=== PATIENT | male | born 1945 | race Caucasian/White ===

== ENCOUNTER → 2017-08-08 | Outpatient (CLI) | payer MEDICARE ==
[~2017-08-08] MED LIST: ACE500 PO; ASP325 PO; ASPI-715 PO; CELE-1 PO; CHOL10005 PO; ENOX40DI13 INJ; IBUP1TAB90 PO; IRO150 PO; MULT-1335 PO; MVM PO; NAPR220C12 PO; OMEP-218 PO; OXYC1TAB54 PO; PIRO-1 PO; TAMS0.4C70 PO; WAR5 PO
[2017-08-08 09:43] LABS: PLATELET COUNT, AUTOMATED 197 K/uL (150-450)
[2017-08-08 09:57] LABS: LDL CHOLESTEROL 88 mg/dl
== END ==
LOC: LAB 09:19
PROVIDERS: ATTEND Internal Medicine
DX: Z12.5 Encounter for screening for malignant neoplasm of prostate (principal); R35.1 Nocturia; R79.9 Abnormal finding of blood chemistry, unspecified
CPT/HCPCS: 36415; 81001; 84443; 85025; G0103; 82040; 82247; 82310; 82374; 82435; 82465; 82565; 82947; 83718; 84075; 84132; 84153; 84155; 84295; 84450; 84460; 84478; 84520

== ENCOUNTER → 2018-05-04 | Outpatient (CLI) | payer MEDICARE, OTHER ==
[~2018-05-04] MED LIST changes: +PNEU0.5D3 IM; +[UNRECOGNIZED DRUG - CODE] PO
[2018-05-04 10:06] LABS: PLATELET COUNT, AUTOMATED 189 K/uL (150-450)
--- NOTE | 2018-05-04 12:18 | EKG ---
[place] [facility] [place]IENT NAME: LAURA BARAJAS : [id number] MR: [id number] V: [id number] EXAM DATE: ORDERING PHYSICIAN: MAEVE DELGADO TECHNOLOGIST: DANIEL Test Reason : SX CLEARENCE Blood Pressure : / mmHG Vent. Rate : 074 BPM Atrial Rate : 074 BPM P-R Int : 154 ms QRS Dur : 098 ms QT Int : 416 ms P-R-T Axes : 035 -41 029 degrees QTc Int : 461 ms Normal sinus rhythm Left axis deviation Abnormal ECG No previous ECGs available Confirmed by MAEVE DELGADO ([id number]) on 05/04/2018 4:44:50 PM Referred By: MARIE Confirmed By:MAEVE DELGADO
== END ==
LOC: LAB 09:28
PROVIDERS: ATTEND Internal Medicine
DX: Z01.818 Encounter for other preprocedural examination (principal); M19.90 Unspecified osteoarthritis, unspecified site; N40.0 Benign prostatic hyperplasia without lower urinary tract symptoms
CPT/HCPCS: 36415; 81001; 82040; 82247; 82310; 82374; 82435; 82565; 82947; 84075; 84132; 84155; 84295; 84450; 84460; 84520; 85025

== ENCOUNTER 2018-05-26 00:35 | Inpatient (IN) | payer MEDICARE ==
[2018-05-25 13:27] LABS: INR 0.96
--- NOTE | 2018-05-25 21:10 | HISTORY AND PHYSICAL ---
DATE OF ADMISSION: May 26, 2018 IDENTIFICATION/CHIEF COMPLAINT Afua is a 72-year-old gentleman with the chief complaint of right knee pain. HISTORY OF PRESENT ILLNESS Patient has a long-standing history of knee arthritis, progressively painful and debilitating, refractory to conservative care. Surgery is indicated to relieve symptoms after failure of nonoperative measures. PAST MEDICAL HISTORY Notable for an enlarged prostate. He is otherwise in excellent health. ALLERGIES He is allergic to PENICILLIN which causes hives. CURRENT MEDICATIONS 1. Aleve two tablets p.o. b.i.d. 2. Vitamin D. 3. Multivitamins. 4. Tamsulosin one tablet p.o. q. day. PAST SURGICAL HISTORY 1. Knee replacement on the contralateral side. 2. Cholecystectomy. SOCIAL HISTORY Negative for tobacco and alcohol use. FAMILY HISTORY Noncontributory. REVIEW OF SYSTEMS Negative. PHYSICAL EXAMINATION GENERAL: He is a well-developed, well-nourished male who appears stated age. HEENT: Normocephalic, atraumatic. NECK: Supple. LUNGS: Clear. HEART: Regular. ABDOMEN: Soft. ORTHOPEDIC: Right knee has crepitus. Gross stability is good. Extensor function is intact. Effusion is present. He is stiff at end range. IMAGING Radiographs demonstrate end-stage knee arthritis. ASSESSMENT Right knee end-stage degenerative joint disease, progressively painful and debilitating, refractory to conservative care. PLAN Per patient request, we are going to proceed with total knee arthroplasty. Nature of this procedure as well as the risks, benefits, the anticipated rehabilitative course reviewed. The risks of the procedure include, but are not limited to , major medical or anesthetic complication, infection, neurovascular injury, blood transfusion, stiffness, scarring, fracture, tendon rupture, instability, implant loosening, migration, or failure, persistent or recurrent pain, need for additional surgery, and other unforeseen. He understands and wishes to proceed. Signed permit is placed in the chart. No guarantees are given or implied. GREGORY
[2018-05-26] VITALS (15 sets, daily range): BP systolic 79–142; BP diastolic 58–87
[~2018-05-26] VITALS: Ht 177.8 cm; Wt 93.0 kg
[~2018-05-26 00:35] MED LIST changes: +ACET500T68 PO
[2018-05-26] MEDS ORDERED: LIDOCAINE MPF 1% 5 ML VIAL ONE (08:11)
[2018-05-26] MEDS ORDERED: PROPOFOL EMUL(*) 10MG/ML 20 ML 20 ML ONE (08:11)
[2018-05-26] MEDS ORDERED: METOCLOPRAMIDE 10 MG/2 ML SDV ONE ×2 (08:11→11:18)
[2018-05-26] MEDS ORDERED: ONDANSETRON 4 MG/2 ML VIAL ONE (08:11)
[2018-05-26] MEDS ORDERED: DEXAMETHASONE SOD 4 MG/ML VIAL ONE ×2 (08:16→11:18)
[2018-05-26] MEDS ORDERED: fentaNYL CITR 100 MCG/2 ML AMP ONE ×2 (08:16→11:18)
[2018-05-26] MEDS ORDERED: MIDAZOLAM 2 MG/2 ML VIAL IVP PRN (09:15)
[2018-05-26] MEDS ORDERED: LIDOCAINE/SOD BICARB 8.4% SYR ID ONE (09:15)
[2018-05-26] MEDS ORDERED: NORMOSOL R SOLN(*) 1000 ML BAG 1,000 ML IV PRN ×2 (09:15→13:40)
[2018-05-26] MEDS ORDERED: cloNIDine EPIDUR INJ 100MCG/ML 40 MCG, ROPIVACAINE 0.5% 20 ML VIAL 25 ML, EPINEPHrine H... INJ ONE (09:15)
[2018-05-26] MEDS ORDERED: ACETAMINOPHEN 500 MG TAB PO ONE (09:15)
[2018-05-26] MEDS ORDERED: CELECOXIB 200 MG CAP PO ONE (09:15)
[2018-05-26] MEDS ORDERED: TRANEXAMIC AC 1000 MG/10ML SDV 1,000 MG in DEXTROSE 5% 50 ML BAG 50 ML IV ONE (09:15)
[2018-05-26] MEDS ORDERED: PREGABALIN 75 MG CAPSULE PO ONE (09:15)
[2018-05-26] MEDS ORDERED: CLINDAMYCIN 900 MG/D5W 50 ML 50 ML IVPB ONE (09:15)
[2018-05-26] MEDS ORDERED: VANCOMYCIN 1 GM VIAL ONE (10:50)
[2018-05-26] MEDS ORDERED: PROPOFOL 10 MG/1 ML VIAL ONE (11:18)
[2018-05-26] MEDS ORDERED: TRANEXAMIC AC 1000 MG/10ML SDV ONE (11:18)
[2018-05-26] MEDS ORDERED: PHENYLEPHRINE/NS/PF 0.4MG/10ML ONE (11:55)
[2018-05-26] MEDS ORDERED: NS 0.9% IRRIGATION 1000ML PLCT IR ONE (12:05)
[2018-05-26] MEDS ORDERED: PHENYLEPHRINE 10 MG/1 ML VIAL ONE (12:05)
[2018-05-26] MEDS ORDERED: LACTATED RINGER 3000 ML BAG IR ONE (12:05)
[2018-05-26] MEDS ORDERED: WATER STERILE FOR IRRIG 1000ML IR ONE (12:06)
[2018-05-26] MEDS ORDERED: NS(*) 0.9% 250 ML BAG 250 ML ONE (12:08)
[2018-05-26] MEDS ORDERED: diphenhydrAMINE 50 MG/ML VIAL IVP PRN (13:40)
[2018-05-26] MEDS ORDERED: PROMETHAZINE 25 MG/ML 1 ML AMP IVP PRN (13:40)
[2018-05-26] MEDS ORDERED: ZOLPIDEM TARTRATE 5 MG TAB PO PRN (13:40)
[2018-05-26] MEDS ORDERED: diphenhydrAMINE 25 MG CAP PO PRN (13:40)
[2018-05-26] MEDS ORDERED: BENZOCAINE/MENTHOL 1 EACH LOZG PO PRN (13:40)
[2018-05-26] MEDS ORDERED: FLUSH 10 ML SYR IVP PRN (13:40)
[2018-05-26] MEDS ORDERED: BISACODYL 10 MG SUPP PR PRN (13:40)
[2018-05-26] MEDS ORDERED: ACETAMINOPHEN 325 MG TAB PO PRN (13:40)
[2018-05-26] MEDS ORDERED: MAGNESIUM HYDROXIDE* 30ML UDCP PO PRN (13:40)
--- NOTE | 2018-05-26 15:43 | RADIOLOGY IMAGING REPORT ---
FACILITY: [facility] PATIENT NAME: Afua Eagle : 1945 MR: [id number] V: [id number] EXAM DATE: ORDERING PHYSICIAN: ELLA EDMONDSON TECHNOLOGIST: Location: [facility] - [place] Patient: Afua Eagle : 1945 Visit/Account:[id number] Date of Sevice: 05/26/2018 Exam type: KNEE LIMITED RIGHT History: S/P TOTAL RIGHT KNEE ARTHROPLASTY, CHECK PLACEMENT Comparison: None. Findings: Two views of the right knee demonstrate a right knee arthroplasty in good anatomic limits. Soft tiss ue gas and skin randall project over the anterior aspect of the right knee IMPRESSION: 1. Right knee arthroplasty appears in good anatomic alignment Report Dictated By: Sol Fisher MD at 05/26/2018 3:38 PM Report E-Signed By: Sol Fisher MD at 05/26/2018 3:38 PM WSN:[id number]
[2018-05-26] MEDS: APAP/HYDROCODONE 325/7.5 TAB PO PRN ×2 (16:07→21:51)
[2018-05-26] MEDS: CELECOXIB 200 MG CAP PO SCH (16:32)
--- NOTE | 2018-05-26 16:36 | OPERATIVE REPORT 1 ---
EVENT DATE: May 26, 2018 SURGEON: Manish Rodriguez MD ANESTHESIOLOGIST: Tolu Blandon MD ANESTHESIA: General with spinal MANAGER TELECOM: JONATHON Jackson PREOPERATIVE DIAGNOSIS Right knee degenerative joint disease. POSTOPERATIVE DIAGNOSIS Right knee degenerative joint disease. PROCEDURE PERFORMED Right total knee arthroplasty. ESTIMATED BLOOD LOSS Minimal. DRAINS None. SPECIMENS None. COMPLICATIONS None apparent. TOURNIQUET TIME 51 minutes. IMPLANTS USED [employer] Triathlon knee system with 6 right PS femur, 6 standard tibial baseplate, 36 mm universal, symmetric, all-polyethylene patellar button, and an 11 mm PS tibial tray liner. Polyethylene is X3. INDICATION Afua has intractable pain and disability related to endstage right knee arthroplasty. Surgery is indicated to relieve symptoms after failure of nonoperative measures. DESCRIPTION OF PROCEDURE Patient was taken to the operating room and placed supine on the operating table. Spinal block is administered by the anesthesiologist. General anesthesia is induced. Standard antibiotics and TXA are administered IV. Right lower extremity is prepped and draped in the usual sterile fashion for knee arthroplasty. Limb is exsanguinated with an Esmarch bandage. Tourniquet is inflated to 250 mmHg. Midline longitudinal incision made, carried down through the skin and subcutaneous tissue to the deep fascia. Full-thickness flaps are developed far enough medially to allow medial parapatellar arthrotomy to be performed. Patella is everted. Knee is brought into flexed position. Fat pad, anterior horns of the menisci, and the cruciate ligaments are debrided. A subperiosteal capsule release is performed circumferentially 1 cm above the upper tibial plateau to start to balance the knee. A step drill is used to enter the distal femur. A 10-inch long alignment guide is used to engage the isthmus, cut set for 5 degrees of valgus relative to the anatomic axis. The 10 mm resection block is applied, pinned, and cuts made with an oscillating saw. 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 The rotational guide is applied and positioned neutral relative to the transepicondylar axis. This is pinned in position, size 6 is optimal without risk of notching. The four-in-one cutting block is applied. Anterior, posterior, posterior chamfer, and anterior chamfer cuts are made respectively. PS block is applied and centered. Medial and lateral bone is removed through the box. Trial femur has nice [id number] fit. Attention is turned to tibial preparation. Extramedullary guide is applied, positioned for varus, valgus, posterior slope, and rotation. This is set to take 2 mm from the relatively deficient lateral tibial plateau. It is then dropped down a couple of more millimeters to ensure an adequate cut. Block is pinned. Extramedullary alignment check is made. Cuts made with an oscillating saw. The popliteus is recessed out of the hiatus on the femur and the IT band is released subperiosteally off Gerdy's tubercle to balance and achieve symmetry in the gaps after removal of all additional osteophytes and removal of posterior spurs. The size 6 tibial baseplate provides optimum bony coverage without soft tissue overhang. This is inserted along with the trial liner and the trial femur. Knee is brought to extension. Patella is taken from a starting thickness of 24 mm to a residual of 14 with a patellar clamp and oscillating saw. The 36 provides optimum bony coverage without soft tissue overhang. Lug holes are drilled. Patella tracks nicely with the no-touch technique. Final tibial preparation consists of assuring appropriate rotational and translational positioning of the component. The boss is reamed. The fin is punched. Surfaces are lavaged. Sclerotic bone is perforated with a small bit to facilitate cement and interdigitation. Mixed methacrylate is made and the components cemented in a single stage. Once the cement is fully polymerized, tourniquet is deflated. Hemostasis is assured. The 11 PS tibial tray liner fills up the gap ideally, allowing the knee to drop to full extension without hyperextension, providing optimal soft tissue tension and stability. The tray is lavaged and dried. Liner is locked into the baseplate. Joint is reduced. Arthrotomy is closed in flexion with #2 Ethibond. Vancomycin powder is placed deep in the wound. The subcutaneous tissue was lavaged, hemostasis was assured. The dermis was closed with 3-0 Vicryl, skin with surgical randall. Xeroform and 4 x 4's applied as a dry, sterile dressing and compression wrap. The patient was awakened from anesthesia and taken to the recovery room in stable condition having tolerated the procedure well. Plan is for standard TKA rehab protocol. [facility]
--- NOTE | 2018-05-26 16:36 | Hospitalist Consultation ---
History of Present Illness Requesting Physician Dr. Rodriguez Reason for Consult Medical Management Chief Complaint s/p right total knee replacement History of Present Illness He was admitted s/p right total knee replacement. It is reported the surgery went well and without complication. History Problems: (1) BPH (benign prostatic hyperplasia) Status: Chronic (2) GERD (gastroesophageal reflux disease) Status: Chronic Home Meds Active Scripts Tamsulosin Hcl (TAMSULOSIN HCL) 0.4 Mg Cap.er.24h, 0.4 MG PO QHS, #90 CAP 3 Refills Prov:MAEVE DELGADO MD 11/10/17 Reported Medications Acetaminophen/Diphenhydramine (ACETAMINOPHEN PM GELTAB) 1 Each Tablet, 1 EACH PO QHS, TAB 05/04/18 Omeprazole Magnesium (PRILOSEC OTC) 20 Mg Tablet.dr, 1 TAB PO QDAY, TAB 08/07/17 Cholecalciferol (Vitamin D3) (VITAMIN D3) 1,000 Unit Tablet, 5000 UNIT PO, TAB 08/07/17 Multivitamins (Thera-M Enhanced) 1 Ea Tab, 1 EA PO QDAY 02/22/12 Discontinued Reported Medications Acetaminophen (TYLENOL EXTRA STRENGTH) 500 Mg Tablet, 1000 MG PO QDAY PRN for PAIN, TAB 05/19/18 Naproxen Sodium (ALEVE) 220 Mg Capsule, 440 MG PO DAILY, CAPSULE 08/07/17 Allergies: Coded Allergies: Penicillins (Verified Allergy, Intermediate, RASH, 05/19/18) Patient History: Patient reports no known family medical history. Hx Smoking: No Smoking Status: Never Smoker Exposure to Second Hand Smoke?: Yes (CHILDHOOD) Caffeine Intake: Coffee Caffeine/Cups Per Day: 4-5 Hx Alcohol Use: No (QUIT 20 YEARS AGO) Social Drug Use: Never Review of Systems All Systems Reviewed/Normal: Yes, Except as Noted Exam Vital Signs Vital Signs Date Time Temp Pulse Resp B/P (MAP) Pulse Ox O2 Delivery O2 Flow Rate FiO2 05/26/18 15:15 79/59 (66) 05/26/18 15:00 84 94 05/26/18 14:43 Nasal Cannula 2.0 05/26/18 14:32 96.5 20 General Appearance: Alert, Awake, No Acute Distress, Afebrile Neuro: No Gross deficits Cardiovascular: Regular Rate and Rhythm Respiratory: No Respiratory Distress, Clear to Auscultation Psych: Alert & Oriented X3, Appropriate Mood & Affect Assessment and Plan Problems: (1) Status post total right knee replacement Status: Acute Assessment & Plan: Followed by Dr. Rodriguez. He will be placed on Aspirin for DVT prophylaxis. He has no history of DVT or PE. (2) BPH (benign prostatic hyperplasia) Status: Chronic Assessment & Plan: He is on chronic treatment with Flomax. He has had some difficulty urinating after surgery in the past. He will receive an extra dose of Flomax tonight, then resume his usual dose tomorrow morning. (3) GERD (gastroesophageal reflux disease) Status: Chronic Assessment & Plan: He is on chronic treatment with Omeprazole. He will receive Protonix during admission. Venous Thromboembolism Antithrombotics Is Pt On Any Antithrombotics?: No Exam Sepsis Risk: No Definite Risk VITOR JOVEL FROG FARMER May 26, 2018 16:36
[2018-05-26] MEDS ORDERED: TAMSULOSIN HCL 0.4 MG CAP PO ONE (16:50)
[2018-05-26] MEDS: CLINDAMYCIN 900 MG/D5W 50 ML 50 ML IVPB SCH (18:14)
[2018-05-26] MEDS ORDERED: IV BOLUS 500 ML IVSOL IV ONE ×2 (19:25→22:40)
[2018-05-26] MEDS: DIAZEPAM 5 MG TAB PO PRN (19:44)
[2018-05-26] MEDS ORDERED: NORMOSOL R SOLN(*) 1000 ML BAG 1,000 ML IV ONE (19:46)
[2018-05-27] VITALS (15 sets, daily range): BP systolic 80–121; BP diastolic 55–73; Ht 177.8 cm; Wt 93.0 kg
[2018-05-27] MEDS: CLINDAMYCIN 900 MG/D5W 50 ML 50 ML IVPB SCH ×2 (02:22→09:46)
[2018-05-27] MEDS: APAP/HYDROCODONE 325/7.5 TAB PO PRN ×4 (02:40→22:48)
[2018-05-27] MEDS: DIAZEPAM 5 MG TAB PO PRN ×2 (06:04→13:10)
[2018-05-27 06:13] LABS: PLATELET COUNT, AUTOMATED 178 K/uL (150-450)
[2018-05-27] MEDS: CELECOXIB 200 MG CAP PO SCH ×2 (07:26→16:16)
[2018-05-27] MEDS: PANTOPRAZOLE SOD 20 MG TABEC PO SCH (08:42)
[2018-05-27] MEDS: TAMSULOSIN HCL 0.4 MG CAP PO SCH (08:42)
[2018-05-27] MEDS: ASPIRIN 325 MG TAB PO SCH (08:42)
--- NOTE | 2018-05-27 10:19 | Hospitalist Progress Note ---
Subjective Progress Notes Subjective This patient was admitted for knee replacement surgery. He did have hypotension overnight. Patient Complains of: Cardiovascular: No: Chest Pain Respiratory: No: Shortness of Breath Physical Exam Vital Signs Date Time Temp Pulse Resp B/P (MAP) Pulse Ox O2 Delivery O2 Flow Rate FiO2 05/27/18 07:27 92 Room Air 05/27/18 07:00 97.6 64 16 104/63 (77) 05/27/18 05:00 1.0 Intake and Output 05/27/18 07:00 Intake Total 3601 ml Output Total 650 ml Balance 2951 ml Intake Oral 200 ml IV Total 3401 ml Output Urine Total 650 ml # Voids 0 Cardiovascular: Regular Rate and Rhythm Respiratory: Clear to Auscultation Result Diagram: 05/27/1852905/27/18529 Assessment and Plan Problems: (1) Status post total right knee replacement Status: Acute Assessment & Plan: His is on aspirin prophylaxis. (2) BPH (benign prostatic hyperplasia) Status: Chronic Assessment & Plan: He is on chronic treatment with Flomax. He has had some difficulty urinating after surgery in the past. He He received an extra dose of Flomax last night. (3) GERD (gastroesophageal reflux disease) Status: Chronic Assessment & Plan: He is on chronic treatment with Omeprazole. He will receive Protonix during admission. (4) Hypotension Assessment & Plan: He did have hypotension overnight. It resolved with IV fluid boluses. Exam Sepsis Risk: No Definite Risk JEANETTE ORELLANA DO May 27, 2018 10:19
[2018-05-27] MEDS ORDERED: ASPI-757 PO (12:10)
[2018-05-27] MEDS ORDERED: HYDR-654 PO (12:20)
[2018-05-28 03:12] VITALS: BP 108/61
[2018-05-28] MEDS: APAP/HYDROCODONE 325/7.5 TAB PO PRN ×2 (04:17→09:05)
[2018-05-28] MEDS: DIAZEPAM 5 MG TAB PO PRN (07:01)
[2018-05-28 07:04] VITALS: BP 119/72
--- NOTE | 2018-05-28 08:18 | Hospitalist Progress Note ---
Subjective Progress Notes Subjective He has no complaints this morning. He had no acute events overnight. Patient Complains of: Cardiovascular: No: Chest Pain Respiratory: No: Shortness of Breath Physical Exam Vital Signs Date Time Temp Pulse Resp B/P (MAP) Pulse Ox O2 Delivery O2 Flow Rate FiO2 05/28/18 07:04 97.4 81 20 119/72 (88) 91 Room Air 05/27/18 20:13 1.0 Intake and Output 05/28/18 06:59 Intake Total 987 ml Output Total 725 ml Balance 262 ml Intake Oral 480 ml IV Total 507 ml Output Urine Total 725 ml # Voids 3 General Appearance: Alert, Awake, No Acute Distress, Afebrile Neuro: No Gross deficits Cardiovascular: Regular Rate and Rhythm Respiratory: No Respiratory Distress, Clear to Auscultation Psych: Alert & Oriented X3, Appropriate Mood & Affect Result Diagram: 05/27/18 0530 05/27/18 0530 Assessment and Plan Problems: (1) Status post total right knee replacement Status: Acute Assessment & Plan: His is on aspirin prophylaxis. (2) BPH (benign prostatic hyperplasia) Status: Chronic Assessment & Plan: He is on chronic treatment with Flomax. (3) GERD (gastroesophageal reflux disease) Status: Chronic Assessment & Plan: He is on chronic treatment with Omeprazole. He will receive Protonix during admission. (4) Hypotension Assessment & Plan: He did have hypotension post-operatively. It resolved with IV fluid boluses. Exam Sepsis Risk: No Definite Risk VITOR JOVELP May 28, 2018 08:18
[2018-05-28] MEDS: CELECOXIB 200 MG CAP PO SCH (09:01)
[2018-05-28] MEDS: ASPIRIN 325 MG TAB PO SCH (09:01)
[2018-05-28] MEDS: PANTOPRAZOLE SOD 20 MG TABEC PO SCH (09:01)
[2018-05-28] MEDS: TAMSULOSIN HCL 0.4 MG CAP PO SCH (09:01)
== END 2018-05-28 10:52 | disposition home or self-care (01) | DRG 470 ==
LOC: OR 00:35 → MED 14:49
PROVIDERS: ADMIT Orthopaedic Surgery; ATTEND Orthopaedic Surgery
PROC: 0SRC0J9 Replacement of Right Knee Joint with Synthetic Substitute, Cemented, Open Approach (ICD-10-PCS; principal; 2018-05-26 11:18)
DX: M17.11 Unilateral primary osteoarthritis, right knee (principal); N40.0 Benign prostatic hyperplasia without lower urinary tract symptoms; Z96.652 Presence of left artificial knee joint; K21.9 Gastro-esophageal reflux disease without esophagitis; I95.9 Hypotension, unspecified; Z88.0 Allergy status to penicillin; Z90.49 Acquired absence of other specified parts of digestive tract; Z87.891 Personal history of nicotine dependence
CPT/HCPCS: 36415; 82310; 82374; 82435; 82565; 82947; 84132; 84295; 84520; 85025; 85610; 86850; 86900; 86901; 97161; C1713; C1776; J0171; J0735; J1100; J1885; J2001; J2250; J2370; J2405; J2704; J2765; J2795; J3010; J3370; J3490; J7050; J7060

== ENCOUNTER → 2018-06-05 | Outpatient (CLI) | payer MEDICARE ==
[2018-05-27 08:57] VITALS: BMI 29.4
[~2018-06-05] MED LIST changes: +ASPI-757 PO; +HYDR-654 PO
--- NOTE | 2018-06-05 12:44 | RADIOLOGY IMAGING REPORT ---
FACILITY: [facility] - [place] PATIENT NAME: Afua Eagle : 1945 MR: [id number] V: [id number] EXAM DATE: ORDERING PHYSICIAN: ELLA EDMONDSON TECHNOLOGIST: Location: [facility] Patient: Afua Eagle : 1945 Visit/Account:[id number] Date of Sevice: 06/05/2018 EXAMINATION: VENOUS DOPP LOW RIGHT EXTREMITY COMPARISON: None Available HISTORY: Duraplasty 10 days ago. Catheter leg pain. FINDINGS: Standard right lower extremity Doppler ultrasound with color flow and spectral analysis is performed. The common femoral, femoral, and popliteal veins are widely patent and compress appropriately. The v isualized calf veins and the proximal greater saphenous vein are patent. Posterior knee subcutaneous per report, there is an overlying bruise in this region. Soft tissue randell a as well as ill-defined fluid. IMPRESSION: 1. No right lower extremity deep venous thrombosis. 2. Right posterior knee subcutaneous edema and ill-defined fluid. Given the history, this is presumab ly postoperative change although correlation with any evidence of infection is recommended. Results were discussed with Dr. Edmondson's nurse at 06/05/2018 12:39 PM. Report Dictated By: Nish Guevara MD at 06/05/2018 12:30 PM Report E-Signed By: Nish Guevara MD at 06/05/2018 12:40 PM WSN:[id number]
== END ==
LOC: US 11:20
PROVIDERS: ATTEND Orthopaedic Surgery
DX: R60.0 Localized edema (principal); Z96.651 Presence of right artificial knee joint

== ENCOUNTER → 2019-01-01 | Outpatient (CLI) | payer MEDICARE, OTHER ==
[2018-05-27 08:57] VITALS: BMI 29.4
[~2019-01-01] MED LIST changes: +TAMS0.4C25 PO
[2019-01-01 09:02] LABS: PLATELET COUNT, AUTOMATED 189 K/uL (150-450)
[2019-01-01 09:34] LABS: LDL CHOLESTEROL 86 mg/dl
== END ==
LOC: LAB 08:48
PROVIDERS: ATTEND Internal Medicine
DX: Z12.5 Encounter for screening for malignant neoplasm of prostate (principal); N40.0 Benign prostatic hyperplasia without lower urinary tract symptoms; K21.9 Gastro-esophageal reflux disease without esophagitis; M19.90 Unspecified osteoarthritis, unspecified site; Z96.651 Presence of right artificial knee joint
CPT/HCPCS: 36415; 81001; 84443; 85025; G0103; 82040; 82247; 82310; 82374; 82435; 82465; 82565; 82947; 83718; 84075; 84132; 84153; 84155; 84295; 84450; 84460; 84478; 84520